=== PATIENT | male | born 1975 | race Two or more races ===

== ENCOUNTER 2018-03-16 11:49 | Emergency (ER) | payer BC ==
[2018-03-16 12:14] VITALS: BP 119/83
[2018-03-16] MEDS ORDERED: DIPH/PERTUSS(ACELL)/TETANUS VAC/PF 0.5 ML SYR (>=10YO) IM ONE (12:23)
[2018-03-16] MEDS ORDERED: LIDOCAINE 1% INJ-PF (10 MG/ML) 30 ML SDV INJ ONE (12:23)
--- NOTE | 2018-03-16 12:23 | ER Document Report ---
HPI - HPI Patient complains to provider of: cut leg with box maker Onset: Just prior to arrival Onset/Duration: Sudden Pain Level: 2 Context: 42 yo normally healthy male accidentally cut right thigh with box maker prior to arrival. Tetanus not current. Associated Symptoms: None Exacerbated by: Denies Relieved by: Denies - ROS ROS below otherwise negative: Yes Systems Reviewed and Negative: Yes All other systems reviewed and negative Past Medical History - General Information source: Patient - Social History Smoking Status: Unknown if Ever Smoked Frequency of alcohol use: None Drug Abuse: None Lives with: Family Family History: Reviewed & Not Pertinent - Medical History Medical History: Negative Surgical Hx: Negative Vertical Provider Document - CONSTITUTIONAL Agree With Documented VS: Yes Exam Limitations: No Limitations General Appearance: No Apparent Distress - INFECTION CONTROL TRAVEL OUTSIDE OF THE [place] IN LAST 30 DAYS: No - MUSCULOSKELETAL/EXTREMETIES Musculoskeletal/Extremeties: MAEW, FROM, Tender - 3 cm full thickness cut to anterior mid right thigh - NEURO Level of Consciousness: Awake, Alert - DERM Integumentary: Laceration Course - Vital Signs Vital signs: Temp Pulse Resp BP Pulse Ox 98.5 F 73 17 119/83 97 03/16/18 12:12 03/16/18 12:12 03/16/18 12:12 03/16/18 12:12 03/16/18 12:12 Procedures - Laceration/Wound Repair Right Leg Time completed: 13:15 Wound length (cm): 3 Wound's Depth, Shape: Linear. No: Into muscle Laceration pre-procedure: Sterile drapes applied, Other - surgiscrub Anesthetic type: 1% Lidocaine Volume Anesthetic (mLs): 6 Wound explored: Clean Wound Repaired With: Sutures Suture Size/Type: 3:0, Nylon Number of Sutures: 4 - vertical mattress Layer Closure?: No Post-procedure wound care: Sterile dressing applied - bacitracin, gauze, coban Post-procedure NV exam normal: Yes Complications: No Discharge - Discharge Clinical Impression: Right anterior thigh laceration repair Condition: Good Disposition: HOME, SELF-CARE Instructions: Acetaminophen, Antibiotic Ointment Protection ([facility]), Ibuprofen ( General) ([facility]), Laceration Care ([facility]), Soap Cleansing ([facility]), Tetanus Immunization Given ([facility]) Additional Instructions: Keep clean and dry Bacitracin for 2 days Suture removal in 12 days Return to the emergency for signs of infection
== END 2018-03-16 13:45 | disposition home or self-care (01) ==
LOC: ER 11:49
PROC: 0HQHXZZ Repair Right Upper Leg Skin, External Approach (ICD-10-PCS; principal; 2018-03-16)
DX: S71.111A Laceration without foreign body, right thigh, initial encounter (principal); W26.0XXA Contact with knife, initial encounter; Z23 Encounter for immunization
CPT/HCPCS: 99282; 90471; 90715; 12002; J3490